=== PATIENT | female | born 1930 | race Native Hawaiian/Other Pacific Islander ===

== ENCOUNTER 2016-07-05 08:29 | Outpatient (CLI) | payer OTHER ==
[~2016-07-05] VITALS: Ht 160 cm; Wt 61.2 kg
[~2016-07-05 08:29] MED LIST: ASPI325T40 PO; EQ ASPIRIN325 M1 PO; LEVO0.0218 PO; TIMOPTIC0.5 % OP; ZANTAC300 MG PO
[2016-07-05 08:30] VITALS: BP 107/56; TEMP 98
[2016-07-05 09:22] LABS: PLATELET COUNT 216 K/uL (152-353)
[2016-07-05 09:55] LABS: POTASSIUM 3.9 mmol/L (3.6-5.2); SODIUM 137 mmol/L (136-145)
== END 2016-07-05 09:30 | disposition home or self-care (01) ==
LOC: INF 08:29
PROVIDERS: Nurse Practitioner Family
DX: D64.89 Other specified anemias (principal); K21.9 Gastro-esophageal reflux disease without esophagitis; Z79.899 Other long term (current) drug therapy; R11.0 Nausea; Z51.81 Encounter for therapeutic drug level monitoring; I87.2 Venous insufficiency (chronic) (peripheral)
CPT/HCPCS: 36591; 80053; 80061; 82607; 83036; 84439; 84443; 85027; 96523; J1642

== ENCOUNTER 2016-08-16 12:00 | Outpatient (CLI) | payer OTHER | END 2016-08-16 13:08 | disposition short-term general hospital (02) | LOC: AMB 12:00 | DX: K56.69 Other intestinal obstruction (principal); R10.84 Generalized abdominal pain | CPT/HCPCS: A0425; A0429 ==

== ENCOUNTER 2016-08-16 18:01 | Emergency (ER) | payer OTHER ==
[~2016-08-16] VITALS: Ht 162.6 cm; Wt 59.0 kg
[2016-08-16 18:45] LABS: PLATELET COUNT 287 K/uL (152-353)
[2016-08-16 19:19] LABS: POTASSIUM 3.6 mmol/L (3.6-5.2)
[2016-08-16 23:51] VITALS: BP 116/70; TEMP 98.9
== END 2016-08-16 23:58 | disposition short-term general hospital (02) ==
LOC: ED 18:01
PROVIDERS: Emergency Medicine
DX: K56.69 Other intestinal obstruction (principal); R10.84 Generalized abdominal pain
CPT/HCPCS: 80053; 82150; 83690; 85027; 96365; 96375; 96376; 99285; J2175; J2405; Q9963

== ENCOUNTER 2016-09-27 10:56 | Outpatient (CLI) | payer OTHER ==
[2016-09-27 12:52] VITALS: BP 105/52; TEMP 98.6
== END 2016-09-27 20:27 | disposition home or self-care (01) ==
LOC: INF 10:56
DX: Z45.2 Encounter for adjustment and management of vascular access device (principal)
CPT/HCPCS: 96374; J1642

== ENCOUNTER 2016-10-31 09:54 | Outpatient (CLI) | payer OTHER ==
[~2016-10-31] VITALS: Ht 157.5 cm; Wt 63.5 kg
[2016-10-31 10:27] VITALS: BP 123/52; TEMP 98.2
== END 2016-10-31 10:26 | disposition home or self-care (01) ==
LOC: INF 09:54
DX: I87.2 Venous insufficiency (chronic) (peripheral) (principal)
CPT/HCPCS: 96374; J1642

== ENCOUNTER 2018-12-19 20:21 | Inpatient (IN) | payer OTHER ==
[~2018-12-19] VITALS: Ht 162.6 cm; Wt 82.6 kg
[2018-12-19 20:42] VITALS: BP 115/72; TEMP 98.3
[2018-12-19 21:29] LABS: PLATELET COUNT 272 K/uL (152-353)
[2018-12-19 21:42] LABS: POTASSIUM 4.2 mmol/L (3.6-5.2)
[2018-12-20] VITALS (15 sets, daily range): BP systolic 103–163; BP diastolic 42–74; TEMP 97.6–98.7; Ht 162.6 cm; Wt 82.6 kg
[2018-12-20] MEDS ORDERED: VITAMIN B SL (04:16)
[2018-12-20] MEDS ORDERED: VITAMIN D5000 UNIT PO (04:18)
[2018-12-20] MEDS ORDERED: CALTRATE 603 PO (04:19)
[2018-12-20] MEDS ORDERED: MAGNESIUM500 M2 PO (04:20)
[2018-12-20] MEDS ORDERED: PROBIOTI2 PO (04:21)
[2018-12-20] MEDS ORDERED: FLINTSTONE3 PO (04:22)
[2018-12-21] VITALS (21 sets, daily range): BP systolic 120–161; BP diastolic 43–79; TEMP 98.4–99.4
[2018-12-21 06:48] LABS: PLATELET COUNT 176 K/uL (152-353)
[2018-12-21 07:13] LABS: POTASSIUM 3.4 mmol/L (3.6-5.2)
[2018-12-22 02:00] VITALS: BP 157/67
[2018-12-22 05:37] LABS: PLATELET COUNT 183 K/uL (152-353)
[2018-12-22 05:59] LABS: POTASSIUM 3.1 mmol/L (3.6-5.2)
[2018-12-22 09:00] VITALS: BP 198/72; TEMP 98.9
[2018-12-22 10:30] VITALS: BP 156/68
== END 2018-12-22 12:50 | disposition home health service (06) | DRG 390 ==
LOC: ED 20:21 → ICU 12-20 01:07 → MED/SURG 12-20 01:07 → ICU 12-20 17:15 → MED/SURG 12-20 17:15 → ICU 12-22 12:50
PROVIDERS: Emergency Medicine; Family Medicine; ADMIT Student in an Organized Health Care Education/Training Program
DX: K56.699 Other intestinal obstruction unspecified as to partial versus complete obstruction (principal); E03.8 Other specified hypothyroidism; I48.91 Unspecified atrial fibrillation; Z85.038 Personal history of other malignant neoplasm of large intestine; M15.8 Other polyosteoarthritis; R73.9 Hyperglycemia, unspecified; K21.9 Gastro-esophageal reflux disease without esophagitis; F03.90 Unspecified dementia, unspecified severity, without behavioral disturbance, psychotic disturbance, mood disturbance, and anxiety; K59.09 Other constipation
CPT/HCPCS: 36415; 43754; 80048; 80053; 82150; 82271; 83605; 83690; 83735; 83986; 85014; 85018; 85027; 93005; 94760; 96360; 96375; 99284; J1956; J1630; J2405; J2550; J3490; Q9963

== ENCOUNTER 2019-07-06 14:25 | Inpatient (IN) | payer OTHER ==
[2019-07-06] VITALS (9 sets, daily range): BP systolic 129–158; BP diastolic 62–87; TEMP 97.8–97.9; Ht 162.6 cm; Wt 60.4 kg
[~2019-07-06] VITALS: Ht 162.6 cm; Wt 60.4 kg
[~2019-07-06 14:25] MED LIST changes: +CALTRATE 603 PO; +FLINTSTONE3 PO; +MAGNESIUM500 M2 PO; +PROBIOTI2 PO; +VITAMIN B SL; +VITAMIN D5000 UNIT PO
[2019-07-06 16:48] LABS: PLATELET COUNT 258 K/uL (152-353)
[2019-07-06 16:55] LABS: POTASSIUM 4.4 mmol/L (3.6-5.2)
[2019-07-07] VITALS (10 sets, daily range): BP systolic 73–133; BP diastolic 44–66; TEMP 97.5–99
[2019-07-07 04:47] LABS: PLATELET COUNT 241 K/uL (152-353)
[2019-07-08] VITALS (15 sets, daily range): BP systolic 75–150; BP diastolic 48–71; TEMP 98–98.8
[2019-07-08 05:47] LABS: PLATELET COUNT 173 K/uL (152-353)
[2019-07-08 06:10] LABS: POTASSIUM 3.7 mmol/L (3.6-5.2)
== END 2019-07-08 13:20 | disposition home or self-care (01) | DRG 389 ==
LOC: ED 14:25 → MED/SURG 19:48 → ED 20:26 → ICU 07-07 19:00
PROVIDERS: Family Medicine; ADMIT Internal Medicine
DX: K56.699 Other intestinal obstruction unspecified as to partial versus complete obstruction (principal); N39.0 Urinary tract infection, site not specified; I95.89 Other hypotension; E86.0 Dehydration; R73.9 Hyperglycemia, unspecified; D72.828 Other elevated white blood cell count; I51.7 Cardiomegaly; J44.9 Chronic obstructive pulmonary disease, unspecified; H40.89 Other specified glaucoma; E83.42 Hypomagnesemia; E53.8 Deficiency of other specified B group vitamins; Z85.038 Personal history of other malignant neoplasm of large intestine; F03.90 Unspecified dementia, unspecified severity, without behavioral disturbance, psychotic disturbance, mood disturbance, and anxiety; R62.7 Adult failure to thrive; D63.8 Anemia in other chronic diseases classified elsewhere; I48.91 Unspecified atrial fibrillation
CPT/HCPCS: 36415; 80053; 81000; 83605; 83880; 85007; 85027; 87040; 96374; 96375; 99282; 99284; J1200; J1630; J1642; J1650; J1956; J2060; J2550; J3370; J3490

== ENCOUNTER 2021-04-09 18:10 | Inpatient (IN) | payer OTHER ==
[~2021-04-09] VITALS: Ht 152.4 cm; Wt 51.9 kg
[2021-04-10 00:45] VITALS: BP 140/68; TEMP 98.2
[2021-04-10 03:23] VITALS: BP 162/75; TEMP 97.7; Ht 152.4 cm; Wt 51.9 kg
[2021-04-10 04:30] VITALS: BP 145/72; TEMP 98.4
[2021-04-10] MEDS ORDERED: DOCU100C10 PO (07:05)
[2021-04-10] MEDS ORDERED: TIMOLOL MAL0.5 % OPTH (07:07)
[2021-04-11 08:00] VITALS: BP 146/62; TEMP 97.6
[2021-04-11 20:00] VITALS: BP 130/52; TEMP 97.6
[2021-04-12 08:00] VITALS: TEMP 98.4
[2021-04-12 20:17] VITALS: BP 102/43; TEMP 98.8
[2021-04-13 08:00] VITALS: BP 114/63; TEMP 98.8
[2021-04-13 20:00] VITALS: BP 114/62; TEMP 98.2
[2021-04-14 20:27] VITALS: BP 133/47; TEMP 97.6
[2021-04-16 20:05] VITALS: BP 98/57; TEMP 98.7
[2021-04-17 20:00] VITALS: BP 90/56; TEMP 99
[2021-04-18 08:00] VITALS: BP 86/50; TEMP 98.6
[2021-04-18 20:00] VITALS: BP 105/52; TEMP 97.7
[2021-04-19 20:00] VITALS: BP 80/40; TEMP 98.5
[2021-04-20 20:00] VITALS: BP 91/51; TEMP 98.3
[2021-04-21 08:00] VITALS: BP 82/56; TEMP 98.3
[2021-04-21 20:00] VITALS: BP 88/52; TEMP 98.5
[2021-04-22 08:00] VITALS: BP 106/53; TEMP 98.6
[2021-04-22 21:22] VITALS: BP 81/47; TEMP 98.2
[2021-04-23 08:00] VITALS: BP 102/55; TEMP 97.9
[2021-04-23 20:00] VITALS: BP 97/53; TEMP 98.5
[2021-04-24 20:00] VITALS: BP 102/52; TEMP 97.3
[2021-04-25 08:00] VITALS: BP 108/57; TEMP 98.6
[2021-04-25 20:00] VITALS: BP 82/53; TEMP 99.2
[2021-04-26 08:00] VITALS: BP 96/55; TEMP 98
[2021-04-26 20:00] VITALS: BP 92/46; TEMP 97.3
== END 2021-04-27 06:10 | disposition home or self-care (01) | DRG 561 ==
LOC: MED/SURG 18:10
PROVIDERS: ADMIT Internal Medicine Endocrinology, Diabetes & Metabolism; ATTEND Internal Medicine Endocrinology, Diabetes & Metabolism
DX: S72.012D Unspecified intracapsular fracture of left femur, subsequent encounter for closed fracture with routine healing (principal); S72.035D Nondisplaced midcervical fracture of left femur, subsequent encounter for closed fracture with routine healing; Z91.81 History of falling; F03.90 Unspecified dementia, unspecified severity, without behavioral disturbance, psychotic disturbance, mood disturbance, and anxiety; M62.81 Muscle weakness (generalized); R48.8 Other symbolic dysfunctions; R26.2 Difficulty in walking, not elsewhere classified; Z74.1 Need for assistance with personal care; D64.9 Anemia, unspecified; E03.9 Hypothyroidism, unspecified; Z85.038 Personal history of other malignant neoplasm of large intestine; F41.9 Anxiety disorder, unspecified
CPT/HCPCS: 87081